=== PATIENT | female | born 1945 | race Caucasian/White ===

== ENCOUNTER 2018-10-23 11:41 | Inpatient (IN) | payer MEDICARE ==
[~2018-10-23] VITALS: Ht 172.7 cm; Wt 83.5 kg
--- NOTE | 2018-10-23 12:12 | NUR ---
PT STATED THAT SHE HAD ABNORMAL LABS AND WAS TOLD TO F/U WITH A GI DOCTOR. PT C/O WEAKNESS, BLOOD IN URINE, LIGHT COLORED STOOLS, AND GEN ABD PAIN. PT IS ALERT, ORIENTED, WITH NAD. PT IS CONNECTED TO THE MONITOR, CALL LIGHT WITHIN REACH.
[2018-10-23 12:21] LABS: MEAN CORPUSCULAR HEMOGLOBIN 31.4 pg (27.0-34.8); MEAN CORPUSCULAR VOLUME 92.3 fL (80-100); MEAN PLATELET VOLUME 9.8 fL (7.4-10.4); PLATELET COUNT 301 x10^3/uL (130-400)
--- NOTE | 2018-10-23 12:22 | NUR ---
US AT BEDSIDE.
[2018-10-23 12:28] LABS: INTERNATIONAL NORMALIZED RATIO 1.28 (0.93-1.1); PROTHROMBIN TIME 13.4 Seconds (9.6-11.5)
[2018-10-23 12:31] LABS: ALANINE AMINOTRANSFERASE 401 U/L (12-78); ALBUMIN 3.5 g/dL (3.4-5.0); ANION GAP 8 mmol/L (5-15); CALCIUM 9.1 mg/dL (8.5-10.1); CHLORIDE 106 mmol/L (98-107); CREATININE 0.88 mg/dL (0.55-1.02)
[2018-10-23 12:33] LABS: ALKALINE PHOSPHATASE 695 U/L (45-117); BILIRUBIN,TOTAL 12.9 mg/dL (0.2-1.0)
[2018-10-23 12:53] LABS: MICROSCOPIC INDICATED
[2018-10-23 12:54] LABS: CULTURE INDICATED? YES
--- NOTE | 2018-10-23 12:59 | NUR ---
PT IS RESTING IN BED, TALKING WITH FAMILY, RESPIRATIONS EQUAL AND NON LABORED. NAD. PT IS CONNECTED TO THE MONITOR. CALL LIGHT WITHIN REACH.
[2018-10-23 13:06] LABS: MD YES
[2018-10-23] MEDS ORDERED: TIOT18CA INH (13:10)
[2018-10-23] MEDS ORDERED: FLUT1DIS3 INH (13:10)
[2018-10-23] MEDS ORDERED: OMEP-110 PO (13:10)
[2018-10-23 13:14] LABS: EOS#(MANUAL) 0.32 x10^3/uL (0.0-0.4); EOS% (MANUAL) 4 % (1-7); LYMPH#(MANUAL) 2.37 x10^3/uL (1-3.4); LYMPHS% (MANUAL) 30 % (22-44); MONOS#(MANUAL) 0.47 x10^3/uL (0.3-2.7); MONOS% (MANUAL) 6 % (2-9); SEG#(MANUAL) 4.74 x10^3/uL (1.8-6.8); SEGS% (MANUAL) 60 % (42-75)
[2018-10-23 13:16] LABS: <PLATELET ESTIMATE> ADEQUATE; <PLT MORPHOLOGY> NORMAL PLT MORPH; <RBC MORPHOLOGY> NORMAL
[2018-10-23] MEDS ORDERED: CEFTRIAXONE PMX 1GM/50ML 50 ML ONE (13:58)
[2018-10-23] MEDS ORDERED: CEFTRIAXONE PMX 1GM/50ML 50 ML IV ONE (14:00)
--- NOTE | 2018-10-23 14:06 | NUR ---
TASK RN: PT RESTING ON GURNEY. CHE VSS. PER ERP DR. SERNA NO NEED FOR BC X2 PRIOR TO START OF IV ANTX.
--- NOTE | 2018-10-23 14:38 | NUR ---
Pt off the floor to radiology.
--- NOTE | 2018-10-23 14:51 | NUR ---
REPORT GIVEN TO KESHAV FERRER.
[2018-10-23] MEDS ORDERED: morphine SULFATE 10 MG/ML, 1ML IVPush PRN (15:00)
[2018-10-23] MEDS ORDERED: LABETALOL 5MG/ML, 20ML IVPush PRN (15:00)
[2018-10-23] MEDS ORDERED: POTASSIUM CHLORIDE 40 MEQ in SODIUM CHLORIDE 0.9% 500 ML IV ONE (15:00)
[2018-10-23] MEDS ORDERED: ONDANSETRON 2MG/ML, 2ML IVPush PRN (15:00)
[2018-10-23 15:45] VITALS: BP 148/63
[2018-10-23] MEDS: SODIUM CHLORIDE 0.9% 1,000 ML IV SCH ×2 (16:48→22:28)
[2018-10-23] MEDS ORDERED: POTASSIUM CHLORIDE 20 MEQ TAB.ER.PRT PO SCH (17:00)
[2018-10-23 17:03] LABS: BILIRUBIN, DIRECT 10.6 mg/dL (0.1-0.2)
[2018-10-23 17:23] LABS: ACETAMINOPHEN 8 mcg/mL (10-30)
[2018-10-23] MEDS: HEPARIN 5,000 UNITS/ML, 1ML SQ SCH ×2 (17:38→23:02)
[2018-10-23 20:23] LABS: ANION GAP 7 mmol/L (5-15); CALCIUM 8.5 mg/dL (8.5-10.1); CHLORIDE 108 mmol/L (98-107); CREATININE 0.75 mg/dL (0.55-1.02)
[2018-10-23 20:49] VITALS: BP 150/88
[2018-10-23] MEDS: TEMPLATE NON-FORMULARY MED. (Fluticasone/Salmeterol** (Advair 100-50 Diskus**) 1 PUFF) INH SCH (21:00)
[2018-10-23] MEDS: POTASSIUM CHLORIDE 20 MEQ TAB.ER.PRT PO SCH (21:20)
[2018-10-23] MEDS: OXYcodone IR 5MG TABLET PO PRN (23:02)
[2018-10-24] MEDS: OXYcodone IR 5MG TABLET PO PRN ×3 (00:10→23:08)
[2018-10-24 00:15] VITALS: BP 138/65
[2018-10-24 05:48] LABS: ALBUMIN 2.6 g/dL (3.4-5.0); ANION GAP 7 mmol/L (5-15); CALCIUM 8.4 mg/dL (8.5-10.1); CHLORIDE 114 mmol/L (98-107)
[2018-10-24 05:52] LABS: ALANINE AMINOTRANSFERASE 274 U/L (12-78); ALKALINE PHOSPHATASE 494 U/L (45-117); BILIRUBIN,TOTAL 10.4 mg/dL (0.2-1.0); CREATININE 0.68 mg/dL (0.55-1.02); TOTAL PROTEIN 5.2 g/dL (6.4-8.2)
[2018-10-24] MEDS: SODIUM CHLORIDE 0.9% 1,000 ML IV SCH ×2 (05:59→20:49)
[2018-10-24 06:46] LABS: MEAN CORPUSCULAR HGB CONC 33.7 g/dL (32.4-35.8); MEAN CORPUSCULAR VOLUME 91.9 fL (80-100); MEAN PLATELET VOLUME 10.2 fL (7.4-10.4); PLATELET COUNT 243 x10^3/uL (130-400); RED BLOOD COUNT 3.84 x10^6/uL (3.82-5.3); RED CELL DISTRIBUTION WIDTH 14.8 % (9.6-15.2)
[2018-10-24 07:48] LABS: MD YES
[2018-10-24 07:52] LABS: <PLATELET ESTIMATE> ADEQUATE; <RBC MORPHOLOGY> NORMAL; EOS#(MANUAL) 0.44 x10^3/uL (0.0-0.4); EOS% (MANUAL) 6 % (1-7); LARGE PLATELETS 1+; LYMPH#(MANUAL) 2.81 x10^3/uL (1-3.4); LYMPHS% (MANUAL) 38 % (22-44); MONOS#(MANUAL) 0.89 x10^3/uL (0.3-2.7); MONOS% (MANUAL) 12 % (2-9); SEG#(MANUAL) 3.26 x10^3/uL (1.8-6.8); SEGS% (MANUAL) 44 % (42-75)
[2018-10-24] MEDS: TEMPLATE NON-FORMULARY MED. (Fluticasone/Salmeterol** (Advair 100-50 Diskus**) 1 PUFF) INH SCH ×2 (08:27→20:43)
[2018-10-24] MEDS: HEPARIN 5,000 UNITS/ML, 1ML SQ SCH ×3 (08:27→23:08)
[2018-10-24] MEDS: TEMPLATE NON-FORMULARY MED. (Tiotropium Bromide** (Spiriva**) 18 MCG) INH SCH (08:27)
[2018-10-24] MEDS: OMEPRAZOLE 20 MG CAPSULE.DR PO SCH (08:28)
[2018-10-24] MEDS: POTASSIUM CHLORIDE 20 MEQ TAB.ER.PRT PO SCH ×3 (08:28→20:48)
[2018-10-24 08:42] VITALS: BP 141/72
[2018-10-24] MEDS ORDERED: OMNIPAQUE 350 MG/ML, 100ML BOTTLE ONE (09:22)
[2018-10-24] MEDS ORDERED: FENTANYL PF 250 MCG/5ML ONE (13:08)
[2018-10-24] MEDS ORDERED: ONDANSETRON 2MG/ML, 2ML ONE (13:15)
[2018-10-24] MEDS ORDERED: SUCCINYLCHOLINE 20 MG/ML, 10ML ONE (13:15)
[2018-10-24] MEDS ORDERED: PROPOFOL 10 MG/ML, 20ML ONE (13:15)
[2018-10-24] MEDS ORDERED: ROCURONIUM 10 MG/ML,10ML ONE (13:15)
[2018-10-24] MEDS ORDERED: LABETALOL 5MG/ML, 20ML IV PRN (14:00)
[2018-10-24] MEDS ORDERED: ONDANSETRON ODT 8 MG PO PRN (14:00)
[2018-10-24] MEDS ORDERED: HYDROmorphone 2 MG/ML, 1ML IVPush PRN (14:00)
[2018-10-24] MEDS ORDERED: FENTANYL PF 100 MCG/2ML IV PRN (14:00)
[2018-10-24] MEDS ORDERED: PROMETHAZINE 25 MG/ML, 1ML IV PRN (14:00)
[2018-10-24] MEDS ORDERED: MIDAZOLAM 1 MG/ML, 2ML IV PRN (14:00)
[2018-10-24] MEDS ORDERED: ONDANSETRON 2MG/ML, 2ML IV PRN (14:00)
[2018-10-24] MEDS ORDERED: EPHEDRINE 50 MG/ML, 1ML IVPush PRN (14:00)
[2018-10-24] MEDS ORDERED: PROMETHAZINE 12.5 MG SUPP PR PRN (14:00)
[2018-10-24] MEDS ORDERED: DIPHENHYDRAMINE 50 MG/ML, 1ML IVPush PRN (14:00)
[2018-10-24] MEDS ORDERED: PROMETHAZINE 25 MG SUPP PR PRN (14:00)
[2018-10-24] MEDS ORDERED: OMNIPAQUE 350 MG/ML, 50 ML BOTTLE ONE (15:49)
[2018-10-24 19:22] VITALS: BP 151/85
[2018-10-25] VITALS: BP 148/69
[2018-10-25] MEDS: SODIUM CHLORIDE 0.9% 1,000 ML IV SCH (04:11)
[2018-10-25 06:09] LABS: ALBUMIN 2.5 g/dL (3.4-5.0); ANION GAP 7 mmol/L (5-15); CALCIUM 8.5 mg/dL (8.5-10.1); CHLORIDE 110 mmol/L (98-107)
[2018-10-25 06:13] LABS: ALANINE AMINOTRANSFERASE 231 U/L (12-78); ALKALINE PHOSPHATASE 527 U/L (45-117); BILIRUBIN,TOTAL 8.9 mg/dL (0.2-1.0); CREATININE 0.59 mg/dL (0.55-1.02); TOTAL PROTEIN 5.1 g/dL (6.4-8.2)
[2018-10-25 07:47] VITALS: BP 137/68
[2018-10-25] MEDS: OXYcodone IR 5MG TABLET PO PRN ×3 (08:44→22:59)
[2018-10-25] MEDS: POTASSIUM CHLORIDE 20 MEQ TAB.ER.PRT PO SCH ×3 (08:44→20:51)
[2018-10-25] MEDS: OMEPRAZOLE 20 MG CAPSULE.DR PO SCH (08:44)
[2018-10-25] MEDS: TEMPLATE NON-FORMULARY MED. (Tiotropium Bromide** (Spiriva**) 18 MCG) INH SCH (08:45)
[2018-10-25] MEDS: TEMPLATE NON-FORMULARY MED. (Fluticasone/Salmeterol** (Advair 100-50 Diskus**) 1 PUFF) INH SCH ×2 (08:45→20:51)
[2018-10-25] MEDS: HEPARIN 5,000 UNITS/ML, 1ML SQ SCH ×3 (08:45→22:59)
[2018-10-25] MEDS ORDERED: SODIUM CHLORIDE 0.9% 1,000 ML IV SCH (14:50)
[2018-10-25 15:57] VITALS: BP 114/71
[2018-10-25 19:18] VITALS: BP 137/56
[2018-10-26] VITALS: BP 144/74
[2018-10-26 06:01] LABS: ALBUMIN 2.5 g/dL (3.4-5.0); ANION GAP 4 mmol/L (5-15); CHLORIDE 109 mmol/L (98-107)
[2018-10-26 06:04] LABS: ALANINE AMINOTRANSFERASE 188 U/L (12-78); ALKALINE PHOSPHATASE 569 U/L (45-117); BILIRUBIN,TOTAL 7.3 mg/dL (0.2-1.0); CREATININE 0.71 mg/dL (0.55-1.02); TOTAL PROTEIN 5.3 g/dL (6.4-8.2)
[2018-10-26 07:13] VITALS: BP 130/60
[2018-10-26] MEDS: POTASSIUM CHLORIDE 20 MEQ TAB.ER.PRT PO SCH ×3 (08:22→20:42)
[2018-10-26] MEDS: HEPARIN 5,000 UNITS/ML, 1ML SQ SCH ×2 (08:22→16:06)
[2018-10-26] MEDS: OMEPRAZOLE 20 MG CAPSULE.DR PO SCH (08:22)
[2018-10-26] MEDS: TEMPLATE NON-FORMULARY MED. (Tiotropium Bromide** (Spiriva**) 18 MCG) INH SCH (08:28)
[2018-10-26] MEDS: TEMPLATE NON-FORMULARY MED. (Fluticasone/Salmeterol** (Advair 100-50 Diskus**) 1 PUFF) INH SCH ×2 (08:28→20:42)
[2018-10-26] MEDS: OXYcodone IR 5MG TABLET PO PRN ×3 (10:57→21:53)
[2018-10-26 13:40] VITALS: BP 129/52
[2018-10-26 20:54] VITALS: BP 154/78
[2018-10-27 01:46] VITALS: BP 133/74
[2018-10-27] MEDS: HEPARIN 5,000 UNITS/ML, 1ML SQ SCH ×3 (01:46→16:53)
[2018-10-27 05:23] LABS: ALBUMIN 2.6 g/dL (3.4-5.0); ANION GAP 5 mmol/L (5-15); CHLORIDE 107 mmol/L (98-107)
[2018-10-27 05:27] LABS: ALANINE AMINOTRANSFERASE 175 U/L (12-78); ALKALINE PHOSPHATASE 576 U/L (45-117); BILIRUBIN,TOTAL 6.3 mg/dL (0.2-1.0); CREATININE 0.73 mg/dL (0.55-1.02); TOTAL PROTEIN 5.7 g/dL (6.4-8.2)
[2018-10-27 06:57] VITALS: BP 146/76
[2018-10-27] MEDS: OMEPRAZOLE 20 MG CAPSULE.DR PO SCH (08:13)
[2018-10-27] MEDS: OXYcodone IR 5MG TABLET PO PRN ×2 (08:13→21:37)
[2018-10-27] MEDS: POTASSIUM CHLORIDE 20 MEQ TAB.ER.PRT PO SCH ×2 (08:13→16:53)
[2018-10-27] MEDS: TEMPLATE NON-FORMULARY MED. (Fluticasone/Salmeterol** (Advair 100-50 Diskus**) 1 PUFF) INH SCH ×2 (08:18→20:13)
[2018-10-27] MEDS: TEMPLATE NON-FORMULARY MED. (Tiotropium Bromide** (Spiriva**) 18 MCG) INH SCH (08:18)
[2018-10-27 15:18] VITALS: BP 129/73
[2018-10-27 19:40] VITALS: BP 129/66
[2018-10-28 01:30] VITALS: BP 129/72
[2018-10-28] MEDS: HEPARIN 5,000 UNITS/ML, 1ML SQ SCH ×3 (01:33→17:30)
[2018-10-28 06:08] LABS: CHLORIDE 107 mmol/L (98-107)
[2018-10-28 06:17] LABS: ALANINE AMINOTRANSFERASE 173 U/L (12-78); ALBUMIN 2.7 g/dL (3.4-5.0); ALKALINE PHOSPHATASE 584 U/L (45-117); ANION GAP 5 mmol/L (5-15); BILIRUBIN,TOTAL 5.4 mg/dL (0.2-1.0); CALCIUM 9.4 mg/dL (8.5-10.1); CREATININE 0.83 mg/dL (0.55-1.02); TOTAL PROTEIN 5.9 g/dL (6.4-8.2)
[2018-10-28 08:34] VITALS: BP 118/78
[2018-10-28] MEDS: TEMPLATE NON-FORMULARY MED. (Fluticasone/Salmeterol** (Advair 100-50 Diskus**) 1 PUFF) INH SCH ×2 (09:00→19:42)
[2018-10-28] MEDS: OMEPRAZOLE 20 MG CAPSULE.DR PO SCH (09:00)
[2018-10-28] MEDS: TEMPLATE NON-FORMULARY MED. (Tiotropium Bromide** (Spiriva**) 18 MCG) INH SCH (09:00)
[2018-10-28] MEDS ORDERED: ONDANSETRON 2MG/ML, 2ML IV PRN (11:00)
[2018-10-28] MEDS ORDERED: hydrALAzine 20 MG/ML, 1ML IV PRN (11:00)
[2018-10-28] MEDS ORDERED: METOPROLOL 1 MG/ML, 5ML IV PRN (11:00)
[2018-10-28] MEDS ORDERED: LABETALOL 5MG/ML, 20ML IV PRN (11:00)
[2018-10-28] MEDS ORDERED: PROPOFOL 10 MG/ML, 100ML IV ONE (11:57)
[2018-10-28] MEDS ORDERED: FENTANYL PF 100 MCG/2ML ONE ×2 (13:16→13:38)
[2018-10-28] MEDS: FENTANYL PF 100 MCG/2ML IV PRN ×4 (13:18→13:55)
[2018-10-28] MEDS ORDERED: OXYcodone 5 MG/5 ML ORAL.SOL UDC ONE (13:26)
[2018-10-28] MEDS ORDERED: OXYcodone 5 MG/5 ML ORAL.SOL UDC PO PRN (13:30)
[2018-10-28 15:06] VITALS: BP 146/77
[2018-10-28] MEDS: OXYcodone IR 5MG TABLET PO PRN (19:39)
[2018-10-28 19:58] VITALS: BP 132/69
[2018-10-29] MEDS: HEPARIN 5,000 UNITS/ML, 1ML SQ SCH ×3 (01:31→18:13)
[2018-10-29 01:35] VITALS: BP 139/64
[2018-10-29] MEDS: OXYcodone IR 5MG TABLET PO PRN ×4 (01:41→18:13)
[2018-10-29] MEDS: OMEPRAZOLE 20 MG CAPSULE.DR PO SCH (07:53)
[2018-10-29] MEDS: TEMPLATE NON-FORMULARY MED. (Fluticasone/Salmeterol** (Advair 100-50 Diskus**) 1 PUFF) INH SCH ×2 (07:54→21:32)
[2018-10-29] MEDS: TEMPLATE NON-FORMULARY MED. (Tiotropium Bromide** (Spiriva**) 18 MCG) INH SCH (07:54)
[2018-10-29 07:55] VITALS: BP 111/68
[2018-10-29 11:48] LABS: ALANINE AMINOTRANSFERASE 198 U/L (12-78); ALBUMIN 3.1 g/dL (3.4-5.0); CALCIUM 8.7 mg/dL (8.5-10.1); CREATININE 0.89 mg/dL (0.55-1.02)
[2018-10-29 11:51] LABS: ALKALINE PHOSPHATASE 590 U/L (45-117); BILIRUBIN,TOTAL 4.2 mg/dL (0.2-1.0); TOTAL PROTEIN 6.9 g/dL (6.4-8.2)
[2018-10-29 12:08] LABS: ANION GAP 5 mmol/L (5-15); CHLORIDE 104 mmol/L (98-107)
[2018-10-29 13:20] VITALS: BP 111/68
[2018-10-29] MEDS ORDERED: BISACODYL 10 MG SUPP PR PRN (18:00)
[2018-10-29] MEDS ORDERED: DOCUSATE 100 MG CAPSULE PO PRN (18:00)
[2018-10-29] MEDS: POLYETHYLENE GLYCOL 17 GM PACKET PO PRN (18:13)
[2018-10-29 21:40] VITALS: BP 97/56
[2018-10-30] MEDS: HEPARIN 5,000 UNITS/ML, 1ML SQ SCH ×2 (01:10→08:26)
[2018-10-30 01:12] VITALS: BP 117/67
[2018-10-30] MEDS ORDERED: ACETAMINOPHEN 325 MG TABLET PO PRN (01:30)
[2018-10-30 02:35] LABS: CULTURE INDICATED? YES; MICROSCOPIC INDICATED
[2018-10-30 07:56] VITALS: BP 124/71
[2018-10-30] MEDS: POLYETHYLENE GLYCOL 17 GM PACKET PO PRN (08:26)
[2018-10-30] MEDS: OMEPRAZOLE 20 MG CAPSULE.DR PO SCH (08:26)
[2018-10-30] MEDS: TEMPLATE NON-FORMULARY MED. (Fluticasone/Salmeterol** (Advair 100-50 Diskus**) 1 PUFF) INH SCH (08:29)
[2018-10-30] MEDS: TEMPLATE NON-FORMULARY MED. (Tiotropium Bromide** (Spiriva**) 18 MCG) INH SCH (08:29)
[2018-10-30] MEDS ORDERED: CEFD300C37 PO (09:12)
[2018-10-30] MEDS ORDERED: METR500T PO (09:12)
== END 2018-10-30 11:06 | disposition home or self-care (01) | DRG 435 ==
LOC: ED 12:59 → EDIP 13:35 → 3NE 15:23
PROVIDERS: ADMIT Internal Medicine; ATTEND Internal Medicine
PROC: BF101ZZ Fluoroscopy of Bile Ducts using Low Osmolar Contrast (ICD-10-PCS; 2018-10-24)
PROC: 0FD98ZX Extraction of Common Bile Duct, Via Natural or Artificial Opening Endoscopic, Diagnostic (ICD-10-PCS; 2018-10-24)
PROC: 0F798DZ Dilation of Common Bile Duct with Intraluminal Device, Via Natural or Artificial Opening Endoscopic (ICD-10-PCS; principal; 2018-10-24 11:30)
PROC: 0FB Hepatobiliary System and Pancreas, Excision (ICD-10-PCS; 2018-10-28)
DX: C24.1 Malignant neoplasm of ampulla of Vater (principal); K83.1 Obstruction of bile duct; E44.0 Moderate protein-calorie malnutrition; E87.6 Hypokalemia; I71.4 Abdominal aortic aneurysm, without rupture; J44.9 Chronic obstructive pulmonary disease, unspecified; K21.9 Gastro-esophageal reflux disease without esophagitis; R73.9 Hyperglycemia, unspecified; Z80.8 Family history of malignant neoplasm of other organs or systems; Z87.891 Personal history of nicotine dependence; Z90.49 Acquired absence of other specified parts of digestive tract; Z90.710 Acquired absence of both cervix and uterus
CPT/HCPCS: 36415; 74178; 74181; 74328; 76700; 80048; 80053; 80307; 81001; 82248; 82378; 83690; 83735; 85025; 85610; 86301; 86704; 86706; 86708; 86803; 87040; 87086; 87340; 88104; 88112; 88173; 88305; 93005; 96374; 99285; G0378; J0696; J1644; J2405; J2704; J3010; J3480; Q9967; C1894; C2625; J0330; J7030; J7040

== ENCOUNTER 2018-12-04 12:33 | Inpatient (IN) | payer MEDICARE ==
[~2018-12-04] VITALS: Ht 172.7 cm; Wt 72.6 kg
[~2018-12-04 12:33] MED LIST: CEFD300C37 PO; FLUT1DIS3 INH; METR500T PO; OMEP-110 PO; TIOT18CA INH
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
[2018-12-04] MEDS ORDERED: SODIUM CHLORIDE 0.9% 1,000 ML IV ONE (13:03)
[2018-12-04] MEDS ORDERED: ONDANSETRON 2MG/ML, 2ML IVPush ONE (13:30)
[2018-12-04] MEDS ORDERED: MORPHINE SULFATE 4 MG/ML, 1ML IVPush PRN (13:30)
[2018-12-04] MEDS ORDERED: SODIUM CHLORIDE FLUSH 10ML SYR IVF ONE (13:30)
[2018-12-04 13:31] LABS: MEAN CORPUSCULAR HEMOGLOBIN 30.8 pg (27.0-34.8); MEAN CORPUSCULAR HGB CONC 33.8 g/dL (32.4-35.8); MEAN CORPUSCULAR VOLUME 91.1 fL (80-100); MEAN PLATELET VOLUME 7.2 fL (7.4-10.4); PLATELET COUNT 876 x10^3/uL (130-400); RED BLOOD COUNT 3.52 x10^6/uL (3.82-5.3); RED CELL DISTRIBUTION WIDTH 13.6 % (9.6-15.2)
--- NOTE | 2018-12-04 13:33 | NUR ---
pt is off the floor to radiology.
[2018-12-04] MEDS ORDERED: ONDANSETRON 2MG/ML, 2ML ONE (13:43)
[2018-12-04] MEDS ORDERED: MORPHINE SULFATE 4 MG/ML, 1ML ONE (13:43)
[2018-12-04 13:59] LABS: ALANINE AMINOTRANSFERASE 30 U/L (12-78); ALBUMIN 2.3 g/dL (3.4-5.0); ANION GAP 9 mmol/L (5-15); CALCIUM 8.3 mg/dL (8.5-10.1); CHLORIDE 101 mmol/L (98-107)
[2018-12-04 14:02] LABS: ALKALINE PHOSPHATASE 146 U/L (45-117); BILIRUBIN,TOTAL 1.1 mg/dL (0.2-1.0); CREATININE 0.48 mg/dL (0.55-1.02); TOTAL PROTEIN 6.1 g/dL (6.4-8.2)
[2018-12-04 14:19] LABS: BASOPHILS # (AUTO) 0.11 x10^3/uL (0-0.1); BASOPHILS % (AUTO) 1 % (0-1); EOSINOPHILS # (AUTO) 0.34 x10^3/uL (0-0.4); EOSINOPHILS % (AUTO) 2 % (1-7); LYMPHOCYTES # (AUTO) 1.89 x10^3/uL (1-3.4); LYMPHOCYTES % (AUTO) 10 % (22-44); MONOCYTES # (AUTO) 0.96 x10^3/uL (0.2-0.8); MONOCYTES % (AUTO) 5 % (2-9); NEUTROPHILS # (AUTO) 14.96 x10^3/uL (1.8-6.8); NEUTROPHILS % (AUTO) 82 % (42-75)
[2018-12-04 14:21] LABS: MD MORPH REVIEW ONLY
[2018-12-04 14:22] LABS: <PLATELET ESTIMATE> INCREASED; <PLT MORPHOLOGY> NORMAL PLT MORPH; ANISOCYTOSIS 1+; POLYCHROMASIA 1+
--- NOTE | 2018-12-04 14:24 | NUR ---
CARE FOR RN BREAK PROVIDED. PT SITTING UP ON GURNEY, NO ACUTE DISTRESS NOTED. PT ABLE TO PROVIDE URINE SPECIMAN. SENT TO LAB. PTS S/O AT BEDSIDE. NO OTHER NEEDS EXPRESSED AT THIS TIME.
--- NOTE | 2018-12-04 14:33 | NUR ---
REPORT TO KORIN FERRER
[2018-12-04 14:56] LABS: MICROSCOPIC AUTO
[2018-12-04 15:14] LABS: CULTURE INDICATED? YES
--- NOTE | 2018-12-04 15:25 | NUR ---
PT SITTING AT THE SIDE OF THE BED, RESPIRATIONS EQUAL AND NON LABORED. NAD. PT IS CONNECTED TO THE MONITOR. CALL LIGHT WITHIN REACH. FAMILY AT BEDSIDE.
--- NOTE | 2018-12-04 16:23 | NUR ---
PT IS RESTING IN BED, RESPIRATIONS EQUAL AND NON LABORED. NAD. PT IS CONNECTED TO THE MONITOR. CALL LIGHT WITHIN REACH.
[2018-12-04] MEDS ORDERED: OMNIPAQUE 350 MG/ML, 100ML BOTTLE ONE (17:16)
--- NOTE | 2018-12-04 17:32 | NUR ---
PT IS RESTING IN BED, RESPIRATIONS EQUAL AND NON LABORED. NAD. PT IS CONNECTED TO THE MONITOR. CALL LIGHT WITHIN REACH. AT BEDSIDE.
[2018-12-04] MEDS ORDERED: CEFTRIAXONE PMX 1GM/50ML 50 ML ONE (17:54)
[2018-12-04] MEDS ORDERED: CEFTRIAXONE PMX 1GM/50ML 50 ML IV ONE (18:00)
--- NOTE | 2018-12-04 18:06 | NUR ---
REPORT GIVEN TO GALLO FERRER.
--- NOTE | 2018-12-04 18:39 | NUR ---
HOSPITALIST AT BEDSIDE.
--- NOTE | 2018-12-04 19:00 | NUR ---
REPORT GIVEN TO YOVANI FERRER.
[2018-12-04 19:43] VITALS: BP 147/74
[2018-12-04] MEDS ORDERED: ACET325C5 PO (20:34)
[2018-12-04] MEDS ORDERED: AMLO10TA4 PO (20:34)
[2018-12-04] MEDS ORDERED: BUDE10.22 INH (20:34)
[2018-12-04] MEDS ORDERED: FLUC200T PO (20:34)
[2018-12-04] MEDS ORDERED: ALPR0.25 PO (20:34)
[2018-12-04] MEDS ORDERED: ENOX40SY4 SQ (20:34)
[2018-12-04] MEDS ORDERED: HYDR-3342 PO (20:35)
[2018-12-04] MEDS ORDERED: SODI75SP NAS (20:50)
[2018-12-04] MEDS ORDERED: SIME80TA16 PO (20:50)
[2018-12-04] MEDS ORDERED: MONT10TA6 PO (20:50)
[2018-12-04] MEDS ORDERED: PIPE3.375 IV (20:50)
[2018-12-04] MEDS ORDERED: LINE600T37 PO (20:50)
[2018-12-04] MEDS ORDERED: ONDA4TAB7 PO (20:50)
[2018-12-04] MEDS ORDERED: OXYC5TAB3 PO ×2 (20:50→21:47)
[2018-12-04] MEDS ORDERED: METR500T PO (20:50)
[2018-12-04] MEDS ORDERED: OMEP20TA62 PO (20:50)
[2018-12-04] MEDS ORDERED: CHOL100011 PO (20:50)
[2018-12-04] MEDS ORDERED: MAG355OR15 PO ×2 (20:50→21:41)
[2018-12-04] MEDS ORDERED: ENALAPRILAT 1.25 MG/ML, 2ML IVPush PRN (21:00)
[2018-12-04] MEDS: SODIUM CHLORIDE 0.9% 1,000 ML IV SCH (21:37)
[2018-12-04] MEDS: ENOXAPARIN 40 MG/0.4 ML SQ SCH (21:43)
[2018-12-04] MEDS: LORazepam 2 MG/ML, 1ML IVPush PRN (21:43)
[2018-12-04] MEDS ORDERED: Albuterol Inhaler (21:43)
[2018-12-04] MEDS ORDERED: DEXT1DRO6 EACHEYE (21:44)
[2018-12-04] MEDS ORDERED: BENZ1LOZ51 PO (21:45)
[2018-12-04] MEDS ORDERED: TRAM50TA2 PO (21:48)
[2018-12-04] MEDS ORDERED: TRAZ-96 PO (21:50)
[2018-12-04] MEDS ORDERED: PIPERACILLIN/TAZO 3.375GM/50ML IV SCH (23:00)
[2018-12-04] MEDS ORDERED: ALBUTEROL SULFATE 2.5 MG/3 ML NPPB SCH (23:00)
[2018-12-05] MEDS: METRONIDAZOLE PMX 500MG/100ML 100 ML IV SCH ×5 (00:31→23:57)
[2018-12-05] MEDS: BENZOCAINE AEROSOL SPRAY 20%, 60ML TP PRN (00:32)
[2018-12-05] MEDS: LINEZOLID PMX 600MG/300ML 300 ML IV SCH ×2 (02:40→13:12)
[2018-12-05 02:46] VITALS: BP 159/75
[2018-12-05] MEDS: LORazepam 2 MG/ML, 1ML IVPush PRN (02:57)
[2018-12-05 04:48] LABS: MEAN CORPUSCULAR HGB CONC 32.8 g/dL (32.4-35.8); MEAN CORPUSCULAR VOLUME 91.5 fL (80-100); MEAN PLATELET VOLUME 7.4 fL (7.4-10.4); PLATELET COUNT 829 x10^3/uL (130-400); RED BLOOD COUNT 3.24 x10^6/uL (3.82-5.3); RED CELL DISTRIBUTION WIDTH 13.6 % (9.6-15.2)
[2018-12-05 05:00] LABS: ALANINE AMINOTRANSFERASE 25 U/L (12-78); ALBUMIN 2.1 g/dL (3.4-5.0); ANION GAP 8 mmol/L (5-15); CALCIUM 7.9 mg/dL (8.5-10.1); CHLORIDE 105 mmol/L (98-107); CREATININE 0.44 mg/dL (0.55-1.02)
[2018-12-05 05:02] LABS: ALKALINE PHOSPHATASE 215 U/L (45-117); BILIRUBIN,TOTAL 0.6 mg/dL (0.2-1.0); TOTAL PROTEIN 5.4 g/dL (6.4-8.2)
[2018-12-05 05:45] LABS: BASOPHILS # (AUTO) 0.02 x10^3/uL (0-0.1); BASOPHILS % (AUTO) 0 % (0-1); EOSINOPHILS # (AUTO) 0.39 x10^3/uL (0-0.4); EOSINOPHILS % (AUTO) 3 % (1-7); LYMPHOCYTES # (AUTO) 1.99 x10^3/uL (1-3.4); LYMPHOCYTES % (AUTO) 13 % (22-44); MD SCAN; MONOCYTES # (AUTO) 1.14 x10^3/uL (0.2-0.8); MONOCYTES % (AUTO) 7 % (2-9); NEUTROPHILS # (AUTO) 12.19 x10^3/uL (1.8-6.8); NEUTROPHILS % (AUTO) 78 % (42-75)
[2018-12-05] MEDS: SIMETHICONE 80 MG CHEW TAB PO SCH ×4 (06:04→19:19)
[2018-12-05] MEDS: SODIUM CHLORIDE 0.9% 1,000 ML IV SCH (06:47)
[2018-12-05 06:50] VITALS: BP 154/68
[2018-12-05] MEDS: ALBUTEROL/IPRATROPIUM 2.5MG/0.5MG, 3 ML NPPB SCH ×4 (07:00→19:59)
[2018-12-05] MEDS: BUDESONIDE 0.5 MG/2 ML INHA NPPB SCH ×2 (07:31→21:00)
[2018-12-05] MEDS: PIPERACILLIN/TAZO/PMX 3.375GM 50 ML IV SCH ×3 (08:10→23:28)
[2018-12-05] MEDS: BISACODYL 10 MG SUPP PR SCH (08:11)
[2018-12-05] MEDS: FLUCONAZOLE 200 MG/100 ML 100 ML IV SCH (08:55)
[2018-12-05] MEDS: KETOROLAC 30 MG/1 ML IV PRN ×2 (13:12→23:57)
[2018-12-05 13:14] VITALS: BP 145/77
[2018-12-05 19:18] VITALS: BP 145/72
[2018-12-05] MEDS: ENOXAPARIN 40 MG/0.4 ML SQ SCH (20:00)
[2018-12-05] MEDS: ONDANSETRON 2MG/ML, 2ML IVPush PRN (21:37)
[2018-12-06 01:02] VITALS: BP 150/72
[2018-12-06] MEDS: LINEZOLID PMX 600MG/300ML 300 ML IV SCH ×2 (01:37→14:16)
[2018-12-06] MEDS: morphine SULFATE 10 MG/ML, 1ML IVPush PRN (04:30)
[2018-12-06] MEDS: SODIUM CHLORIDE 0.9% 1,000 ML IV SCH ×2 (04:30→16:32)
[2018-12-06 05:25] LABS: CLOSTRIDIUM DIFFICILE ANTIGEN NEGATIVE; CLOSTRIDIUM DIFFICILE TOXIN NEGATIVE (Negative)
[2018-12-06] MEDS: SIMETHICONE 80 MG CHEW TAB PO SCH ×4 (05:39→21:00)
[2018-12-06] MEDS: METRONIDAZOLE PMX 500MG/100ML 100 ML IV SCH ×2 (06:25→12:20)
[2018-12-06 07:10] VITALS: BP 171/78
[2018-12-06] MEDS: BUDESONIDE 0.5 MG/2 ML INHA NPPB SCH ×3 (07:45→22:10)
[2018-12-06] MEDS: ALBUTEROL/IPRATROPIUM 2.5MG/0.5MG, 3 ML NPPB SCH ×5 (07:45→22:10)
[2018-12-06 08:28] LABS: BASOPHILS # (AUTO) 0.03 x10^3/uL (0-0.1); BASOPHILS % (AUTO) 0 % (0-1); EOSINOPHILS # (AUTO) 0.63 x10^3/uL (0-0.4); EOSINOPHILS % (AUTO) 5 % (1-7); LYMPHOCYTES # (AUTO) 1.39 x10^3/uL (1-3.4); LYMPHOCYTES % (AUTO) 11 % (22-44); MD NO; MEAN CORPUSCULAR HEMOGLOBIN 30.6 pg (27.0-34.8); MEAN CORPUSCULAR HGB CONC 33.8 g/dL (32.4-35.8); MEAN CORPUSCULAR VOLUME 90.6 fL (80-100); MEAN PLATELET VOLUME 7.1 fL (7.4-10.4); MONOCYTES # (AUTO) 1.02 x10^3/uL (0.2-0.8); MONOCYTES % (AUTO) 8 % (2-9); NEUTROPHILS # (AUTO) 9.35 x10^3/uL (1.8-6.8); NEUTROPHILS % (AUTO) 75 % (42-75); PLATELET COUNT 832 x10^3/uL (130-400); RED BLOOD COUNT 3.24 x10^6/uL (3.82-5.3); RED CELL DISTRIBUTION WIDTH 13.7 % (9.6-15.2)
[2018-12-06] MEDS: BISACODYL 10 MG SUPP PR SCH (08:33)
[2018-12-06] MEDS: PIPERACILLIN/TAZO/PMX 3.375GM 50 ML IV SCH ×3 (08:33→23:35)
[2018-12-06 08:41] VITALS: BP 156/72
[2018-12-06] MEDS: FLUCONAZOLE 200 MG/100 ML 100 ML IV SCH (09:50)
[2018-12-06] MEDS: KETOROLAC 30 MG/1 ML IV PRN ×2 (09:50→22:22)
[2018-12-06] MEDS: ONDANSETRON 2MG/ML, 2ML IVPush PRN ×2 (10:57→20:39)
[2018-12-06 13:20] VITALS: BP 163/67
[2018-12-06 19:20] VITALS: BP 147/72
[2018-12-06] MEDS: ENOXAPARIN 40 MG/0.4 ML SQ SCH (19:31)
[2018-12-07 00:25] VITALS: BP 152/72
[2018-12-07] MEDS: morphine SULFATE 10 MG/ML, 1ML IVPush PRN (00:29)
[2018-12-07] MEDS: ONDANSETRON 2MG/ML, 2ML IVPush PRN ×3 (03:28→20:01)
[2018-12-07] MEDS: SODIUM CHLORIDE 0.9% 1,000 ML IV SCH (03:28)
[2018-12-07 05:07] LABS: ALBUMIN 2.1 g/dL (3.4-5.0); ANION GAP 7 mmol/L (5-15); CALCIUM 7.7 mg/dL (8.5-10.1); CHLORIDE 106 mmol/L (98-107)
[2018-12-07 05:10] LABS: ALANINE AMINOTRANSFERASE 20 U/L (12-78); ALKALINE PHOSPHATASE 88 U/L (45-117); BILIRUBIN,TOTAL 0.7 mg/dL (0.2-1.0)
[2018-12-07] MEDS: SIMETHICONE 80 MG CHEW TAB PO SCH ×4 (05:18→22:25)
[2018-12-07 07:10] VITALS: BP 157/79
[2018-12-07] MEDS ORDERED: MAGNESIUM SULFATE PMX 2GM/50ML 50 ML IV ONE (07:30)
[2018-12-07] MEDS ORDERED: POTASSIUM CHLORIDE 40 MEQ in SODIUM CHLORIDE 0.9% 500 ML IV ONE (07:30)
[2018-12-07] MEDS: PIPERACILLIN/TAZO/PMX 3.375GM 50 ML IV SCH ×2 (07:53→16:32)
[2018-12-07] MEDS: NS + 20MEQ KCL 1,000 ML IV SCH ×2 (07:53→22:43)
[2018-12-07] MEDS: KETOROLAC 30 MG/1 ML IV PRN (07:53)
[2018-12-07] MEDS: BISACODYL 10 MG SUPP PR SCH (07:53)
[2018-12-07] MEDS: ALBUTEROL/IPRATROPIUM 2.5MG/0.5MG, 3 ML NPPB SCH ×3 (10:55→20:00)
[2018-12-07 12:28] LABS: BASOPHILS # (AUTO) 0.05 x10^3/uL (0-0.1); BASOPHILS % (AUTO) 0 % (0-1); EOSINOPHILS % (AUTO) 5 % (1-7); LYMPHOCYTES # (AUTO) 1.58 x10^3/uL (1-3.4); LYMPHOCYTES % (AUTO) 13 % (22-44); MD NO; MEAN CORPUSCULAR HEMOGLOBIN 31.2 pg (27.0-34.8); MEAN CORPUSCULAR HGB CONC 34.1 g/dL (32.4-35.8); MEAN CORPUSCULAR VOLUME 91.6 fL (80-100); MEAN PLATELET VOLUME 7.6 fL (7.4-10.4); MONOCYTES % (AUTO) 7 % (2-9); NEUTROPHILS # (AUTO) 8.94 x10^3/uL (1.8-6.8); NEUTROPHILS % (AUTO) 74 % (42-75); PLATELET COUNT 748 x10^3/uL (130-400); RED BLOOD COUNT 3.11 x10^6/uL (3.82-5.3)
[2018-12-07 13:20] VITALS: BP 158/72
[2018-12-07 19:00] VITALS: BP 158/73
[2018-12-07] MEDS: BENZOCAINE AEROSOL SPRAY 20%, 60ML TP PRN (19:50)
[2018-12-07] MEDS: BUDESONIDE 0.5 MG/2 ML INHA NPPB SCH (21:00)
[2018-12-07] MEDS: ENOXAPARIN 40 MG/0.4 ML SQ SCH (22:25)
[2018-12-07] MEDS: LORazepam 2 MG/ML, 1ML IVPush PRN (22:25)
[2018-12-08 00:15] VITALS: BP 163/68
[2018-12-08] MEDS: PIPERACILLIN/TAZO/PMX 3.375GM 50 ML IV SCH ×4 (00:40→23:49)
[2018-12-08 05:26] LABS: BASOPHILS # (AUTO) 0.06 x10^3/uL (0-0.1); BASOPHILS % (AUTO) 1 % (0-1); EOSINOPHILS # (AUTO) 0.44 x10^3/uL (0-0.4); EOSINOPHILS % (AUTO) 4 % (1-7); LYMPHOCYTES # (AUTO) 1.98 x10^3/uL (1-3.4); LYMPHOCYTES % (AUTO) 16 % (22-44); MD NO; MEAN CORPUSCULAR HEMOGLOBIN 31.2 pg (27.0-34.8); MEAN CORPUSCULAR VOLUME 91.8 fL (80-100); MONOCYTES # (AUTO) 1.02 x10^3/uL (0.2-0.8); MONOCYTES % (AUTO) 8 % (2-9); NEUTROPHILS # (AUTO) 8.76 x10^3/uL (1.8-6.8); NEUTROPHILS % (AUTO) 71 % (42-75); PLATELET COUNT 680 x10^3/uL (130-400); RED BLOOD COUNT 3.21 x10^6/uL (3.82-5.3); RED CELL DISTRIBUTION WIDTH 13.9 % (9.6-15.2)
[2018-12-08 05:43] LABS: ALANINE AMINOTRANSFERASE 18 U/L (12-78); CALCIUM 7.8 mg/dL (8.5-10.1); CHLORIDE 108 mmol/L (98-107)
[2018-12-08 05:47] LABS: ALBUMIN 2.1 g/dL (3.4-5.0); ALKALINE PHOSPHATASE 91 U/L (45-117); ANION GAP 8 mmol/L (5-15); BILIRUBIN,TOTAL 0.4 mg/dL (0.2-1.0); TOTAL PROTEIN 5.1 g/dL (6.4-8.2)
[2018-12-08] MEDS: SIMETHICONE 80 MG CHEW TAB PO SCH ×3 (05:47→22:26)
[2018-12-08 06:51] VITALS: BP 176/79
[2018-12-08] MEDS: ALBUTEROL/IPRATROPIUM 2.5MG/0.5MG, 3 ML NPPB SCH ×4 (07:00→19:05)
[2018-12-08] MEDS: BUDESONIDE 0.5 MG/2 ML INHA NPPB SCH ×2 (07:13→19:06)
[2018-12-08] MEDS: BISACODYL 10 MG SUPP PR SCH (07:39)
[2018-12-08 09:25] VITALS: BP 148/72
[2018-12-08] MEDS: morphine SULFATE 10 MG/ML, 1ML IVPush PRN (12:15)
[2018-12-08] MEDS: NS + 20MEQ KCL 1,000 ML IV SCH (12:15)
[2018-12-08 14:55] VITALS: BP 139/82
[2018-12-08 19:35] VITALS: BP 166/75
[2018-12-08] MEDS ORDERED: TPN PER PHARMACY MC SCH (20:00)
[2018-12-08] MEDS: BENZOCAINE AEROSOL SPRAY 20%, 60ML TP PRN (22:10)
[2018-12-08] MEDS: METOCLOPRAMIDE 5 MG/ML, 2ML IVPush SCH (22:26)
[2018-12-08] MEDS: ENOXAPARIN 40 MG/0.4 ML SQ SCH (22:27)
[2018-12-08] MEDS: LORazepam 2 MG/ML, 1ML IVPush PRN ×2 (22:58→23:02)
[2018-12-09] MEDS: NS + 20MEQ KCL 1,000 ML IV SCH (01:13)
[2018-12-09 02:41] VITALS: BP 167/76
[2018-12-09 04:32] LABS: BASOPHILS # (AUTO) 0.05 x10^3/uL (0-0.1); BASOPHILS % (AUTO) 1 % (0-1); EOSINOPHILS # (AUTO) 0.43 x10^3/uL (0-0.4); EOSINOPHILS % (AUTO) 4 % (1-7); LYMPHOCYTES # (AUTO) 2.16 x10^3/uL (1-3.4); LYMPHOCYTES % (AUTO) 19 % (22-44); MD NO; MEAN CORPUSCULAR HEMOGLOBIN 30.4 pg (27.0-34.8); MEAN CORPUSCULAR HGB CONC 33.3 g/dL (32.4-35.8); MEAN CORPUSCULAR VOLUME 91.4 fL (80-100); MEAN PLATELET VOLUME 7.1 fL (7.4-10.4); MONOCYTES # (AUTO) 0.95 x10^3/uL (0.2-0.8); MONOCYTES % (AUTO) 8 % (2-9); NEUTROPHILS # (AUTO) 8.09 x10^3/uL (1.8-6.8); NEUTROPHILS % (AUTO) 69 % (42-75); PLATELET COUNT 664 x10^3/uL (130-400); RED BLOOD COUNT 3.32 x10^6/uL (3.82-5.3); RED CELL DISTRIBUTION WIDTH 13.9 % (9.6-15.2)
[2018-12-09 04:39] LABS: ANION GAP 7 mmol/L (5-15); CALCIUM 7.8 mg/dL (8.5-10.1); CHLORIDE 107 mmol/L (98-107); CREATININE 0.42 mg/dL (0.55-1.02)
[2018-12-09] MEDS: METOCLOPRAMIDE 5 MG/ML, 2ML IVPush SCH ×4 (04:55→23:38)
[2018-12-09] MEDS: SIMETHICONE 80 MG CHEW TAB PO SCH ×4 (04:55→19:57)
[2018-12-09] MEDS: BUDESONIDE 0.5 MG/2 ML INHA NPPB SCH ×2 (06:34→21:00)
[2018-12-09] MEDS: ALBUTEROL/IPRATROPIUM 2.5MG/0.5MG, 3 ML NPPB SCH ×3 (06:34→21:00)
[2018-12-09 06:47] VITALS: BP 161/84
[2018-12-09] MEDS: PIPERACILLIN/TAZO/PMX 3.375GM 50 ML IV SCH ×3 (08:35→23:38)
[2018-12-09] MEDS: BISACODYL 10 MG SUPP PR SCH (08:35)
[2018-12-09] MEDS ORDERED: POTASSIUM CHLORIDE 40 MEQ in SODIUM CHLORIDE 0.9% 500 ML IV ONE (09:30)
[2018-12-09] MEDS ORDERED: FUROSEMIDE 20 MG/2 ML IV ONE (12:30)
[2018-12-09 13:06] VITALS: BP 174/79
[2018-12-09] MEDS: METHYLNALTREXONE 12 MG/0.6 ML SYR SQ SCH (15:36)
[2018-12-09] MEDS ORDERED: [UNRECOGNIZED DRUG - OTHER] IV SCH (17:00)
[2018-12-09] MEDS ORDERED: AMINO ACID 10% IV SCH (17:00)
[2018-12-09] MEDS ORDERED: DEXTROSE 70% IV SCH (17:00)
[2018-12-09] MEDS ORDERED: DEXTROSE 50%, 50ML SYRINGE IVPush PRN (17:00)
[2018-12-09] MEDS ORDERED: DEXTROSE 10% 500 ML IV PRN (17:00)
[2018-12-09] MEDS ORDERED: SMOF TPN IV SCH (17:00)
[2018-12-09] MEDS ORDERED: FAT EMUL IV SCH (17:00)
[2018-12-09] MEDS: morphine SULFATE 10 MG/ML, 1ML IVPush PRN (19:08)
[2018-12-09] MEDS: LORazepam 2 MG/ML, 1ML IVPush PRN (19:50)
[2018-12-09 19:59] VITALS: BP 154/77
[2018-12-09] MEDS: INSULIN REGULAR LOW DOSE Q6H X 48HRS SQ-INSULIN SCH (21:44)
[2018-12-09] MEDS: ENOXAPARIN 40 MG/0.4 ML SQ SCH (21:44)
[2018-12-10 00:45] VITALS: BP 165/80
[2018-12-10] MEDS: LORazepam 2 MG/ML, 1ML IVPush PRN ×3 (00:56→23:09)
[2018-12-10] MEDS: ALBUTEROL/IPRATROPIUM 2.5MG/0.5MG, 3 ML NPPB SCH ×4 (02:48→21:00)
[2018-12-10] MEDS: INSULIN REGULAR LOW DOSE Q6H X 48HRS SQ-INSULIN SCH ×4 (04:01→21:00)
[2018-12-10 04:40] LABS: ALANINE AMINOTRANSFERASE 14 U/L (12-78); ALBUMIN 2.3 g/dL (3.4-5.0); ANION GAP 5 mmol/L (5-15); CALCIUM 8.1 mg/dL (8.5-10.1); CHLORIDE 105 mmol/L (98-107)
[2018-12-10 04:45] LABS: ALKALINE PHOSPHATASE 88 U/L (45-117); BILIRUBIN,TOTAL 0.5 mg/dL (0.2-1.0); PREALBUMIN 11.4 mg/dL (20.0-40.0); TOTAL PROTEIN 5.6 g/dL (6.4-8.2); TRIGLYCERIDES 138 mg/dL (50-200)
[2018-12-10] MEDS: SIMETHICONE 80 MG CHEW TAB PO SCH ×4 (05:16→20:40)
[2018-12-10] MEDS: METOCLOPRAMIDE 5 MG/ML, 2ML IVPush SCH ×4 (05:16→23:09)
[2018-12-10 06:40] VITALS: BP 168/82
[2018-12-10] MEDS: BUDESONIDE 0.5 MG/2 ML INHA NPPB SCH ×2 (07:22→21:00)
[2018-12-10] MEDS ORDERED: NS + 40MEQ KCL 1,000 ML IV SCH (07:30)
[2018-12-10] MEDS ORDERED: SODIUM CHLORIDE 0.9% 1,000 ML IV SCH (07:30)
[2018-12-10] MEDS: PIPERACILLIN/TAZO/PMX 3.375GM 50 ML IV SCH ×2 (08:41→17:01)
[2018-12-10] MEDS: BISACODYL 10 MG SUPP PR SCH (08:48)
[2018-12-10] MEDS: morphine SULFATE 10 MG/ML, 1ML IVPush PRN ×3 (10:43→21:07)
[2018-12-10 15:07] VITALS: BP 150/79
[2018-12-10] MEDS ORDERED: [UNRECOGNIZED DRUG - OTHER] IV SCH (17:00)
[2018-12-10] MEDS ORDERED: [UNRECOGNIZED DRUG - OTHER] IV SCH (17:00)
[2018-12-10] MEDS ORDERED: SMOF TPN IV SCH ×2 (17:00)
[2018-12-10] MEDS ORDERED: AMINO ACID 10% IV SCH ×2 (17:00)
[2018-12-10] MEDS ORDERED: FAT EMUL IV SCH ×2 (17:00)
[2018-12-10] MEDS ORDERED: DEXTROSE 70% IV SCH ×2 (17:00)
[2018-12-10] MEDS: METHYLNALTREXONE 12 MG/0.6 ML SYR SQ SCH (17:01)
[2018-12-10] MEDS: FILTER, DISP 1.2 MICRON FOR TPN/PVN IV PRN (17:26)
[2018-12-10 19:08] VITALS: BP 165/85
[2018-12-10] MEDS: ENOXAPARIN 40 MG/0.4 ML SQ SCH (20:42)
[2018-12-11] MEDS: PIPERACILLIN/TAZO/PMX 3.375GM 50 ML IV SCH ×3 (00:04→16:13)
[2018-12-11] MEDS: ALBUTEROL/IPRATROPIUM 2.5MG/0.5MG, 3 ML NPPB SCH ×4 (03:00→21:00)
[2018-12-11] MEDS: morphine SULFATE 10 MG/ML, 1ML IVPush PRN ×3 (04:14→17:07)
[2018-12-11] MEDS: METOCLOPRAMIDE 5 MG/ML, 2ML IVPush SCH ×4 (04:14→21:58)
[2018-12-11 04:18] VITALS: BP 145/80
[2018-12-11] MEDS: INSULIN REGULAR LOW DOSE Q6H X 48HRS SQ-INSULIN SCH ×3 (04:20→15:00)
[2018-12-11 05:04] LABS: ANION GAP 4 mmol/L (5-15); CALCIUM 8.3 mg/dL (8.5-10.1); CHLORIDE 105 mmol/L (98-107); CREATININE 0.45 mg/dL (0.55-1.02)
[2018-12-11] MEDS: SIMETHICONE 80 MG CHEW TAB PO SCH ×4 (05:38→21:00)
[2018-12-11 07:25] VITALS: BP 148/79
[2018-12-11] MEDS: BISACODYL 10 MG SUPP PR SCH (08:42)
[2018-12-11] MEDS: BUDESONIDE 0.5 MG/2 ML INHA NPPB SCH ×2 (09:24→21:00)
[2018-12-11 10:55] LABS: MEAN CORPUSCULAR HEMOGLOBIN 29.7 pg (27.0-34.8); MEAN CORPUSCULAR HGB CONC 32.6 g/dL (32.4-35.8); MEAN CORPUSCULAR VOLUME 91.1 fL (80-100); MEAN PLATELET VOLUME 7.1 fL (7.4-10.4); PLATELET COUNT 461 x10^3/uL (130-400); RED BLOOD COUNT 3.53 x10^6/uL (3.82-5.3); RED CELL DISTRIBUTION WIDTH 13.9 % (9.6-15.2)
[2018-12-11 10:57] LABS: ANION GAP 7 mmol/L (5-15); CALCIUM 8.4 mg/dL (8.5-10.1); CHLORIDE 106 mmol/L (98-107)
[2018-12-11 11:19] LABS: BASOPHILS # (AUTO) 0.06 x10^3/uL (0-0.1); BASOPHILS % (AUTO) 1 % (0-1); EOSINOPHILS # (AUTO) 0.46 x10^3/uL (0-0.4); EOSINOPHILS % (AUTO) 4 % (1-7); LYMPHOCYTES # (AUTO) 2.83 x10^3/uL (1-3.4); LYMPHOCYTES % (AUTO) 22 % (22-44); MD SCAN; MONOCYTES # (AUTO) 1.44 x10^3/uL (0.2-0.8); MONOCYTES % (AUTO) 11 % (2-9); NEUTROPHILS # (AUTO) 8.21 x10^3/uL (1.8-6.8); NEUTROPHILS % (AUTO) 63 % (42-75)
[2018-12-11 12:05] VITALS: BP 157/80
[2018-12-11] MEDS: METHYLNALTREXONE 12 MG/0.6 ML SYR SQ SCH (13:12)
[2018-12-11] MEDS ORDERED: AMINO ACID 10% IV SCH (17:00)
[2018-12-11] MEDS ORDERED: [UNRECOGNIZED DRUG - OTHER] IV SCH (17:00)
[2018-12-11] MEDS ORDERED: DEXTROSE 70% IV SCH (17:00)
[2018-12-11] MEDS ORDERED: SMOF TPN IV SCH (17:00)
[2018-12-11] MEDS ORDERED: FAT EMUL IV SCH (17:00)
[2018-12-11] MEDS: LIDODERM 5% PATCH TD PRN ×2 (17:07→21:47)
[2018-12-11] MEDS: FILTER, DISP 1.2 MICRON FOR TPN/PVN IV PRN (17:08)
[2018-12-11 19:29] VITALS: BP 134/77
[2018-12-11] MEDS: ENOXAPARIN 40 MG/0.4 ML SQ SCH (21:46)
[2018-12-11] MEDS: INSULIN REGULAR LOW DOSE QDAY SQ-INSULIN SCH (21:48)
[2018-12-11] MEDS: LORazepam 2 MG/ML, 1ML IVPush PRN (21:58)
[2018-12-12] MEDS: PIPERACILLIN/TAZO/PMX 3.375GM 50 ML IV SCH ×2 (00:14→08:49)
[2018-12-12] MEDS: morphine SULFATE 10 MG/ML, 1ML IVPush PRN ×3 (02:19→20:37)
[2018-12-12 02:27] VITALS: BP 142/81
[2018-12-12] MEDS: ALBUTEROL/IPRATROPIUM 2.5MG/0.5MG, 3 ML NPPB SCH ×4 (03:00→20:50)
[2018-12-12] MEDS: LORazepam 2 MG/ML, 1ML IVPush PRN ×2 (04:58→22:32)
[2018-12-12] MEDS: METOCLOPRAMIDE 5 MG/ML, 2ML IVPush SCH ×4 (04:58→22:32)
[2018-12-12 05:35] LABS: ANION GAP 4 mmol/L (5-15); CALCIUM 8.2 mg/dL (8.5-10.1); CHLORIDE 108 mmol/L (98-107); CREATININE 0.43 mg/dL (0.55-1.02)
[2018-12-12] MEDS: SIMETHICONE 80 MG CHEW TAB PO SCH ×5 (06:00→20:42)
[2018-12-12 06:38] VITALS: BP 165/95
[2018-12-12] MEDS: BISACODYL 10 MG SUPP PR SCH (08:49)
[2018-12-12] MEDS: BUDESONIDE 0.5 MG/2 ML INHA NPPB SCH ×2 (09:53→20:50)
[2018-12-12 12:05] VITALS: BP 152/83
[2018-12-12] MEDS: METHYLNALTREXONE 12 MG/0.6 ML SYR SQ SCH (13:13)
[2018-12-12] MEDS ORDERED: FAT EMUL IV SCH (17:00)
[2018-12-12] MEDS ORDERED: [UNRECOGNIZED DRUG - OTHER] IV SCH (17:00)
[2018-12-12] MEDS ORDERED: AMINO ACID 10% IV SCH (17:00)
[2018-12-12] MEDS ORDERED: SMOF TPN IV SCH (17:00)
[2018-12-12] MEDS ORDERED: DEXTROSE 70% IV SCH (17:00)
[2018-12-12 18:55] VITALS: BP 127/74
[2018-12-12] MEDS: INSULIN REGULAR LOW DOSE QDAY SQ-INSULIN SCH (20:24)
[2018-12-12] MEDS ORDERED: MORPHINE SULFATE 4 MG/ML, 1ML ONE (20:34)
[2018-12-12] MEDS: ENOXAPARIN 40 MG/0.4 ML SQ SCH (20:42)
[2018-12-12] MEDS ORDERED: INSULIN REGULAR LOW DOSE QDAY SQ-INSULIN SCH (21:00)
[2018-12-13 01:46] VITALS: BP 127/69
[2018-12-13] MEDS: ALBUTEROL/IPRATROPIUM 2.5MG/0.5MG, 3 ML NPPB SCH ×4 (02:25→21:15)
[2018-12-13] MEDS ORDERED: MORPHINE SULFATE 4 MG/ML, 1ML ONE ×2 (04:34→19:58)
[2018-12-13] MEDS: METOCLOPRAMIDE 5 MG/ML, 2ML IVPush SCH ×4 (04:44→22:47)
[2018-12-13] MEDS: morphine SULFATE 10 MG/ML, 1ML IVPush PRN ×3 (04:45→20:03)
[2018-12-13] MEDS: SIMETHICONE 80 MG CHEW TAB PO SCH ×4 (05:04→19:46)
[2018-12-13 05:27] LABS: ANION GAP 6 mmol/L (5-15); CALCIUM 8.2 mg/dL (8.5-10.1); CHLORIDE 107 mmol/L (98-107); CREATININE 0.45 mg/dL (0.55-1.02)
[2018-12-13 07:22] VITALS: BP 145/81
[2018-12-13] MEDS: BISACODYL 10 MG SUPP PR SCH (09:00)
[2018-12-13] MEDS: BUDESONIDE 0.5 MG/2 ML INHA NPPB SCH ×2 (09:00→21:15)
[2018-12-13] MEDS: METHYLNALTREXONE 12 MG/0.6 ML SYR SQ SCH (12:30)
[2018-12-13 12:35] VITALS: BP 135/83
[2018-12-13] MEDS: ONDANSETRON 2MG/ML, 2ML IVPush PRN (12:57)
[2018-12-13] MEDS: DEXTROSE 70% IV SCH (18:22)
[2018-12-13] MEDS: FILTER, DISP 1.2 MICRON FOR TPN/PVN IV PRN (18:22)
[2018-12-13] MEDS: AMINO ACID 10% IV SCH (18:22)
[2018-12-13] MEDS: [UNRECOGNIZED DRUG - OTHER] IV SCH (18:22)
[2018-12-13] MEDS: FAT EMUL IV SCH (18:22)
[2018-12-13] MEDS: SMOF TPN IV SCH (18:22)
[2018-12-13 19:13] VITALS: BP 127/71
[2018-12-13] MEDS: INSULIN REGULAR LOW DOSE QDAY SQ-INSULIN SCH (20:10)
[2018-12-13] MEDS: ENOXAPARIN 40 MG/0.4 ML SQ SCH (20:11)
[2018-12-13] MEDS: LORazepam 2 MG/ML, 1ML IVPush PRN (22:43)
[2018-12-14] MEDS ORDERED: MORPHINE SULFATE 4 MG/ML, 1ML ONE (01:16)
[2018-12-14] MEDS: morphine SULFATE 10 MG/ML, 1ML IVPush PRN ×5 (01:19→21:42)
[2018-12-14 01:48] VITALS: BP 124/70
[2018-12-14] MEDS: ALBUTEROL/IPRATROPIUM 2.5MG/0.5MG, 3 ML NPPB SCH ×4 (03:00→21:00)
[2018-12-14] MEDS: METOCLOPRAMIDE 5 MG/ML, 2ML IVPush SCH ×4 (04:56→22:35)
[2018-12-14] MEDS: SIMETHICONE 80 MG CHEW TAB PO SCH ×4 (04:56→21:00)
[2018-12-14 05:27] LABS: ANION GAP 4 mmol/L (5-15); CALCIUM 8.2 mg/dL (8.5-10.1); CHLORIDE 107 mmol/L (98-107); MEAN CORPUSCULAR HEMOGLOBIN 30.5 pg (27.0-34.8); MEAN CORPUSCULAR HGB CONC 33.6 g/dL (32.4-35.8); MEAN CORPUSCULAR VOLUME 90.5 fL (80-100); MEAN PLATELET VOLUME 7.9 fL (7.4-10.4); PLATELET COUNT 337 x10^3/uL (130-400); RED BLOOD COUNT 3.07 x10^6/uL (3.82-5.3); RED CELL DISTRIBUTION WIDTH 14.3 % (9.6-15.2)
[2018-12-14 05:28] LABS: CREATININE 0.45 mg/dL (0.55-1.02)
[2018-12-14 06:17] LABS: BASOPHILS # (AUTO) 0.08 x10^3/uL (0-0.1); BASOPHILS % (AUTO) 1 % (0-1); EOSINOPHILS # (AUTO) 0.85 x10^3/uL (0-0.4); EOSINOPHILS % (AUTO) 7 % (1-7); LYMPHOCYTES # (AUTO) 2.76 x10^3/uL (1-3.4); LYMPHOCYTES % (AUTO) 24 % (22-44); MD SCAN; MONOCYTES % (AUTO) 13 % (2-9); NEUTROPHILS # (AUTO) 6.46 x10^3/uL (1.8-6.8); NEUTROPHILS % (AUTO) 55 % (42-75)
[2018-12-14 06:42] VITALS: BP 142/74
[2018-12-14] MEDS: BUDESONIDE 0.5 MG/2 ML INHA NPPB SCH ×2 (09:00→21:00)
[2018-12-14] MEDS: BISACODYL 10 MG SUPP PR SCH (09:24)
[2018-12-14] MEDS: ACETAMINOPHEN 325 MG TABLET PO PRN ×2 (12:17→16:40)
[2018-12-14 13:28] VITALS: BP 145/81
[2018-12-14] MEDS: [UNRECOGNIZED DRUG - OTHER] IV SCH (17:00)
[2018-12-14] MEDS: FAT EMUL IV SCH (17:00)
[2018-12-14] MEDS: DEXTROSE 70% IV SCH (17:00)
[2018-12-14] MEDS: AMINO ACID 10% IV SCH (17:00)
[2018-12-14] MEDS: SMOF TPN IV SCH (17:00)
[2018-12-14 19:09] VITALS: BP 122/74
[2018-12-14] MEDS: ENOXAPARIN 40 MG/0.4 ML SQ SCH (21:31)
[2018-12-14] MEDS: LORazepam 2 MG/ML, 1ML IVPush PRN (22:42)
[2018-12-15 02:30] VITALS: BP 137/73
[2018-12-15] MEDS: ALBUTEROL/IPRATROPIUM 2.5MG/0.5MG, 3 ML NPPB SCH ×4 (02:45→20:55)
[2018-12-15] MEDS: morphine SULFATE 10 MG/ML, 1ML IVPush PRN ×2 (03:00→11:16)
[2018-12-15 03:04] LABS: BASOPHILS # (AUTO) 0.07 x10^3/uL (0-0.1); BASOPHILS % (AUTO) 1 % (0-1); EOSINOPHILS # (AUTO) 0.57 x10^3/uL (0-0.4); EOSINOPHILS % (AUTO) 5 % (1-7); LYMPHOCYTES # (AUTO) 3.41 x10^3/uL (1-3.4); LYMPHOCYTES % (AUTO) 31 % (22-44); MD NO; MEAN CORPUSCULAR HEMOGLOBIN 30.9 pg (27.0-34.8); MEAN CORPUSCULAR HGB CONC 33.9 g/dL (32.4-35.8); MEAN CORPUSCULAR VOLUME 91.2 fL (80-100); MEAN PLATELET VOLUME 7.9 fL (7.4-10.4); MONOCYTES # (AUTO) 1.16 x10^3/uL (0.2-0.8); MONOCYTES % (AUTO) 11 % (2-9); NEUTROPHILS # (AUTO) 5.76 x10^3/uL (1.8-6.8); NEUTROPHILS % (AUTO) 53 % (42-75); PLATELET COUNT 343 x10^3/uL (130-400); RED BLOOD COUNT 3.12 x10^6/uL (3.82-5.3); RED CELL DISTRIBUTION WIDTH 14.8 % (9.6-15.2)
[2018-12-15 03:13] LABS: ANION GAP 6 mmol/L (5-15); CALCIUM 8.8 mg/dL (8.5-10.1); CHLORIDE 105 mmol/L (98-107); CREATININE 0.53 mg/dL (0.55-1.02)
[2018-12-15] MEDS: SIMETHICONE 80 MG CHEW TAB PO SCH ×4 (05:04→20:51)
[2018-12-15] MEDS: METOCLOPRAMIDE 5 MG/ML, 2ML IVPush SCH ×2 (05:04→11:30)
[2018-12-15 06:41] VITALS: BP 138/67
[2018-12-15] MEDS: BUDESONIDE 0.5 MG/2 ML INHA NPPB SCH ×2 (08:05→20:55)
[2018-12-15] MEDS: BISACODYL 10 MG SUPP PR SCH (09:00)
[2018-12-15] MEDS: ACETAMINOPHEN 325 MG TABLET PO PRN (09:58)
[2018-12-15] MEDS ORDERED: ENOX40SY4 SQ (13:20)
[2018-12-15] MEDS ORDERED: ACET325T14 PO (13:20)
[2018-12-15] MEDS ORDERED: OXYC1TAB7 PO (13:20)
[2018-12-15] MEDS: AMLODIPINE 10 MG TAB PO SCH (13:30)
[2018-12-15 13:51] VITALS: BP 134/68
[2018-12-15] MEDS: OXYcodone/APAP 5/325MG TABLET PO PRN ×2 (17:00→20:47)
[2018-12-15 19:09] VITALS: BP 146/70
[2018-12-15] MEDS: ENOXAPARIN 40 MG/0.4 ML SQ SCH (20:51)
[2018-12-16 00:11] VITALS: BP 133/80
[2018-12-16] MEDS: OXYcodone/APAP 5/325MG TABLET PO PRN (01:38)
[2018-12-16] MEDS: ALBUTEROL/IPRATROPIUM 2.5MG/0.5MG, 3 ML NPPB SCH ×3 (03:05→14:00)
[2018-12-16] MEDS: SIMETHICONE 80 MG CHEW TAB PO SCH ×3 (03:42→13:54)
[2018-12-16 06:49] VITALS: BP 159/85
[2018-12-16] MEDS: BUDESONIDE 0.5 MG/2 ML INHA NPPB SCH (07:03)
[2018-12-16] MEDS ORDERED: FLUT1DIS IH (08:27)
[2018-12-16] MEDS ORDERED: SIME80TA16 PO (08:27)
[2018-12-16] MEDS: BISACODYL 10 MG SUPP PR SCH (09:00)
[2018-12-16] MEDS: AMLODIPINE 10 MG TAB PO SCH (09:03)
[2018-12-16 12:43] VITALS: BP 178/98
[2018-12-16] MEDS ORDERED: ONDANSETRON ODT 4 MG ONE (13:47)
[2018-12-16] MEDS: ONDANSETRON 2MG/ML, 2ML IVPush PRN (13:51)
== END 2018-12-16 15:00 | DRG 381 ==
LOC: ED 14:48 → EDIP 17:38 → 3NW 19:12
PROVIDERS: ADMIT Internal Medicine; ATTEND Internal Medicine
PROC: 0D9670Z Drainage of Stomach with Drainage Device, Via Natural or Artificial Opening (ICD-10-PCS; 2018-12-05)
PROC: 02HV33Z Insertion of Infusion Device into Superior Vena Cava, Percutaneous Approach (ICD-10-PCS; principal; 2018-12-09)
PROC: B5181ZA Fluoroscopy of Superior Vena Cava using Low Osmolar Contrast, Guidance (ICD-10-PCS; 2018-12-09)
PROC: B548ZZA Ultrasonography of Superior Vena Cava, Guidance (ICD-10-PCS; 2018-12-09)
PROC: 0DP6XUZ Removal of Feeding Device from Stomach, External Approach (ICD-10-PCS; 2018-12-12)
DX: K31.1 Adult hypertrophic pyloric stenosis (principal); K56.600 Partial intestinal obstruction, unspecified as to cause; J98.11 Atelectasis; E46 Unspecified protein-calorie malnutrition; K56.51 Intestinal adhesions [bands], with partial obstruction; D64.9 Anemia, unspecified; E83.42 Hypomagnesemia; E87.6 Hypokalemia; F41.9 Anxiety disorder, unspecified; I10 Essential (primary) hypertension; J44.9 Chronic obstructive pulmonary disease, unspecified; K21.9 Gastro-esophageal reflux disease without esophagitis; N30.90 Cystitis, unspecified without hematuria; Z80.8 Family history of malignant neoplasm of other organs or systems; Z85.09 Personal history of malignant neoplasm of other digestive organs; Z87.891 Personal history of nicotine dependence; Z90.411 Acquired partial absence of pancreas; Z90.710 Acquired absence of both cervix and uterus; Z68.24 Body mass index [BMI] 24.0-24.9, adult
CPT/HCPCS: 36415; 36573; 74018; 74021; 74022; 74177; 74241; 80048; 80053; 81001; 82962; 83690; 83735; 84100; 84134; 84478; 85025; 87086; 87324; 94640; 99285; G0378; J0610; J0696; J1650; J1815; J1885; J2020; J2405; J2543; J3475; J3480; J7613; J7620; J7626; Q9967; C1751; J1450; J1940; J2060; J2270; J2765; J7030; J7040